=== PATIENT | female | born 1965 | race Caucasian/White ===

== ENCOUNTER 2017-12-22 19:05 | Inpatient (IN) | payer SELFPAY ==
[~2017-12-22] VITALS: Ht 157.5 cm; Wt 68.9 kg
[~2017-12-22 19:05] MED LIST: ALPR-138 PO; HYDR-3580 PO
[2017-12-22 19:13] VITALS: BP 168/95; PULSE 87; RESP 18; TEMP 98.5; O2SAT 98
--- NOTE | 2017-12-22 19:21 | PD ---
HPI Chief Complaint: Numbness/Tingling Time Seen by Provider: 19:13 Travel History International Travel<30 days: No Contact w/Intl Traveler<30days: No Traveled to known affect area: No History of Present Illness HPI The patient is a 51 year old female who presents to the [facility] emergency department with a history of developing left-sided weakness in her face, arm, leg this morning at 8:30 AM. She reports that she also has associated numbness in the left side of her face, arm, and left leg. She reports that throughout the day her weakness in the left leg has improved. However she continues to have a prominent sensation of left-sided facial numbness and left arm numbness. She reports that it is in a glove and stocking distribution. She reports having a mild headache, however she did not require any medication for it. She reports that the headache is in the left side of her head. She denies any prior history of hypertension, hyperlipidemia, or prior stroke. On review of systems otherwise, the patient denies having any known recent fevers, cough or congestion, neck pain, chest pain, shortness of breath, abdominal pain, vomiting, urinary symptoms, dizziness, or vision loss. Review of systems, the patient reports having diarrhea that began at lunchtime today. She reports that she has had 6 stools since onset. She reports that the stool is dark green in color. She denies having any blood or mucus in her stool. LMP: June 2017, she is perimenopausal. [facility] Past Medical History Narrative Medical The patient's past medical history is reportedly none. The patient does have a prior history of smoking and quit 8 months ago, however she did have a few cigarettes this past weekend. Arthritis: No Anxiety: No Depression: No Cancer: No Cardiovascular Problems: No Chemotherapy: No Cerebrovascular Accident: No Diabetes: No Diminished Hearing: No Genitourinary: No Immune Disorder: No Musculoskeletal: No Neurologic: No Psychiatric: No Reproductive: No Respiratory: No Migraines: No Radiation Therapy: No Sickle Cell Disease: No Thyroid Disease: No ?: Unknown Past Surgical History Narrative Surgical The patient's past surgical history is significant for , appendectomy Abdominal Surgery: No AICD: No Arteriovenous Shunt: No Cardiac Surgery: No Section: Yes Ear Surgery: No Endocrine Surgery: No Eye Surgery: No Genitourinary Surgery: No Gynecologic Surgery: Yes (c section) Insulin Pump: No Joint Replacement: No Oral Surgery: No (root cannot) Pacemaker: No Thoracic Surgery: No Social History Alcohol Use: No Tobacco Use: No (Quit smoking 8 months ago) Substance Use: No Allergies-Medications (Allergen,Severity, Reaction): Coded Allergies: penicillin G (Unverified Allergy, Intermediate, Shortness of Breath, ) Reported Meds & Prescriptions Reported Meds & Active Scripts Active No Active Prescriptions or Reported Medications Narrative Medication She denies being on any medications currently Review of Systems Except as stated in HPI: all other systems reviewed are Neg General / Constitutional: No: Fever Eyes: No: Visual changes HENT: Positive: Headaches, No: Congestion Cardiovascular: No: Chest Pain or Discomfort, Dyspnea on exertion Respiratory: No: Cough, Shortness of Breath Gastrointestinal: Positive: Diarrhea, No: Nausea, Vomiting, Abdominal Pain Genitourinary: No: Dysuria Musculoskeletal: No: Pain Skin: No Rash Neurologic: No: Weakness Psychiatric: No: Depression Endocrine: No: Polydipsia Hematologic/Lymphatic: No: Easy Bruising Physical Exam Narrative General: The patient is a well-developed well-nourished female in no acute distress. Head and Neck exam: Head is normocephalic, with notable facial asymmetry, mild facial droop noted on the right side. Eyes: EOMI, pupils are equal round and reactive to light. Nose: Midline septum with pink mucous membranes Mouth: Dentition unremarkable. Moist mucus membranes. Posterior oropharynx is not erythematous. No tonsillar hypertrophy. Uvula midline. Airway patent. Neck: No palpable lymphadenopathy. No nuchal rigidity. No thyromegaly. Cardiovascular: Regular rate and rhythm without murmurs, gallops, or rubs. No pulse deficit to the extremities on simultaneous auscultation and palpation of her radial artery Lungs: Clear to auscultation bilaterally. No wheezes, rhonchi, or rales. Abdomen: Soft, without tenderness to palpation in all 4 quadrants of the abdomen. No guarding, rebound, or rigidity. Normal bowel sounds are audible. No tenderness on palpation of McBurney's point. Negative Canseco sign. Extremities: No clubbing, cyanosis, or edema. 2+ pulses in all 4 extremities. No calf tenderness on palpation. Back: No costovertebral angle tenderness to palpation. Neurologic Exam: The patient has decreased sensation on the left side of her face. The patient has a mild facial droop on the right side of her face. The patient has numbness and tingling to the left upper extremity. The patient has 4/5 strength in the left upper and left lower extremity on examination. The patient has 5/5 strength in the right upper and right lower extremity. The patient has no evidence of aphasia and is able to name various objects around the room and communicate clearly. No visual field deficits. Skin Exam: No rash noted. Intact skin that is warm and dry. Data Data Last Documented VS Vital Signs Date Time Temp Pulse Resp B/P (MAP) Pulse Ox O2 Delivery O2 Flow Rate FiO2 12/22/17 20:25 85 18 127/84 (98) 97 Room Air 12/22/17 19:13 98.5 Orders Orders Electrocardiogram (12/22/17 19:17) B-Type Natriuretic Peptide (12/22/17 19:17) Ckmb (Isoenzyme) Profile (12/22/17 19:17) Complete Blood Count With Diff (12/22/17 19:17) Comprehensive Metabolic Panel (12/22/17 19:17) Magnesium (Mg) (12/22/17 19:17) Prothrombin Time / Inr (Pt) (12/22/17 19:17) Act Partial Throm Time (Ptt) (12/22/17 19:17) Troponin I (12/22/17 19:17) Lipase (12/22/17 19:17) Ecg Monitoring (12/22/17 19:17) Bilateral Bp Monitoring (12/22/17 19:17) Iv Access Insert/Monitor (12/22/17 19:17) Oximetry (12/22/17 19:17) Oxygen Administration (12/22/17 19:17) Aspirin Chew (Aspirin Chew) (12/22/17 19:30) Sodium Chloride 0.9% Flush (Ns Flush) (12/22/17 19:30) Nitroglycerin Sl (Nitrostat Sl) (12/22/17 19:30) Chest, Pa & Lat (12/22/17 19:17) Ed Urine Pregnancytest Poc (12/22/17 19:17) Fibrinogen (12/22/17 19:31) Ct Brain W/O Iv Contrast(Rout) (12/22/17 ) Cta Brain W Iv Contrast W 3d (12/22/17 19:31) Cta Neck W Iv Contrast W 3d (12/22/17 19:31) Consult Neurology (12/22/17 ) Sodium Chlor 0.9% 1000 Ml Inj (Ns 1000 M (12/22/17 19:31) (Hub Use Only)Inp Phy Cons/Ref (12/22/17 ) Urinalysis - C+S If Indicated (12/22/17 20:47) CKMB (12/22/17 19:20) CKMB% (12/22/17 19:20) Aspirin (Aspirin) (12/22/17 21:30) Iohexol 350 Inj (Omnipaque 350 Inj) (12/22/17 21:29) Admit Order (Ed Use Only) (12/22/17 21:41) Labs Laboratory Tests Test 12/22/17 19:20 12/22/17 20:30 White Blood Count 11.0 TH/MM3 Red Blood Count 4.71 MIL/MM3 Hemoglobin 15.3 GM/DL Hematocrit 43.2 % Mean Corpuscular Volume 91.7 FL Mean Corpuscular Hemoglobin 32.4 PG Mean Corpuscular Hemoglobin Concent 35.3 % Red Cell Distribution Width 13.6 % Platelet Count 310 TH/MM3 Mean Platelet Volume 9.4 FL Neutrophils (%) (Auto) 49.1 % Lymphocytes (%) (Auto) 40.1 % Monocytes (%) (Auto) 7.4 % Eosinophils (%) (Auto) 2.4 % Basophils (%) (Auto) 1.0 % Neutrophils # (Auto) 5.4 TH/MM3 Lymphocytes # (Auto) 4.4 TH/MM3 Monocytes # (Auto) 0.8 TH/MM3 Eosinophils # (Auto) 0.3 TH/MM3 Basophils # (Auto) 0.1 TH/MM3 CBC Comment DIFF FINAL Differential Comment Prothrombin Time 9.8 SEC Prothromb Time International Ratio 1.0 RATIO Activated Partial Thromboplast Time 27.0 SEC Fibrinogen 261 mg/dL Blood Urea Nitrogen 8 MG/DL Creatinine 0.92 MG/DL Random Glucose 124 MG/DL Total Protein 7.4 GM/DL Albumin 4.0 GM/DL Calcium Level 8.7 MG/DL Magnesium Level 2.1 MG/DL Alkaline Phosphatase 124 U/L Aspartate Amino Transf (AST/SGOT) 30 U/L Alanine Aminotransferase (ALT/SGPT) 64 U/L Total Bilirubin 0.3 MG/DL Sodium Level 140 MEQ/L Potassium Level 3.8 MEQ/L Chloride Level 110 MEQ/L Carbon Dioxide Level 23.8 MEQ/L Anion Gap 6 MEQ/L Estimat Glomerular Filtration Rate 65 ML/MIN Total Creatine Kinase 105 U/L Creatine Kinase MB 1.8 NG/ML Troponin I LESS THAN 0.02 NG/ML B-Type Natriuretic Peptide 18 PG/ML Lipase 273 U/L Urine Color LIGHT-YELLOW Urine Turbidity CLEAR Urine pH 7.0 Urine Specific Brumley 1.005 Urine Protein NEG mg/dL Urine Glucose (UA) NEG mg/dL Urine Ketones NEG mg/dL Urine Occult Blood NEG Urine Nitrite NEG Urine Bilirubin NEG Urine Urobilinogen LESS THAN 2.0 MG/DL Urine Leukocyte Esterase NEG Urine WBC LESS THAN 1 /hpf Urine Squamous Epithelial Cells 2 /hpf Urine Bacteria OCC /hpf Microscopic Urinalysis Comment CULT NOT INDICATED MDM Medical Decision Making Medical Screen Exam Complete: Yes Emergency Medical Condition: Yes Medical Record Reviewed: Yes Interpretation(s) Last Impressions Neck CTA 12/22/171930 Signed Impressions: Service Date/Time: Friday, December 22, 2017 21:06 - CONCLUSION: Normal examination for a patient of this age. Vlad Moreira MD Head CTA 12/22/171930 Signed Impressions: Service Date/Time: Friday, December 22, 2017 21:06 - CONCLUSION: Normal examination for a patient of this age. Vlad Moreira MD Chest X-Ray [id number]/22/[id number] Signed Impressions: Service Date/Time: Friday, December 22, 2017 19:41 - CONCLUSION: No acute disease. Vlad Moreira MD Head CT 12/22/17 0000 Signed Impressions: Service Date/Time: Friday, December 22, 2017 21:04 - CONCLUSION: Normal examination for a patient of this age. Vlad Moreira MD Differential Diagnosis Ischemic stroke, versus hemorrhagic stroke, versus intracranial mass, versus hypoglycemia Narrative Course During the course of the patient's emergency department visit, the patient's history, examination, and differential diagnosis were reviewed with the patient. The patient was placed on a cardiac nurse specialist with oximetry and frequent blood pressure monitoring. The patient had IV access obtained and blood work sent for analysis. The patient is out of the timeframe for meeting criteria for stroke alert. The patient's symptoms began at approximately 8:30 AM, over 11 hours ago. A call was placed out to the neurologist on-call regarding this patient's case. An NIH score was calculated at 1942 to be 6. He recommended that the patient undergo CT scan of the brain without contrast, followed by CTA of the head and neck. He recommended that if the noncontrast CT is negative for bleed, that the patient be started on aspirin 325 mg daily. He recommended admission to the hospitalist service and continuation of stroke workup including MRI, 2D echo. The patient had an EKG done on arrival that shows a sinus rhythm heart rate of 91, QRS duration is 87 ms, QTC [address] segment elevation is noted. T waves appear to be inverted in lead III, V1. The patient was initially provided normal saline at 70 mL/h. Blood sugar was done and was noted to be 129. The patient's head of the bed was placed flat. The patient's laboratory studies were reviewed and remarkable for a CBC that is within normal limits, CMP is remarkable for chloride 110, glucose 124, ALT 64, alk phos 124, cardiac enzymes within normal limits, BNP 18, lipase 273, PT PTT within normal limits, fibrinogen is 261, urinalysis is unremarkable Radiology studies were reviewed and remarkable for a chest x-ray that shows no acute cardiopulmonary disease, CT scan of the head showed no acute abnormality, therefore aspirin 325 mg p.o. was started 1. CTA of the head and neck were read as negative by the reading radiologist. While the patient was being observed in the emergency department, the patient reported after being laid flat in the bed she began to have chest pain in the left side of her chest. Cardiac enzymes and EKG showed no acute abnormality. The patient had already been given aspirin. The patient was given morphine for pain, Zofran for nausea. She denies having any sensation of acid reflux or indigestion associated with this. The patient's results were discussed with the patient, including the plan of care. I explained that further testing and/ or monitoring is indicated based on the patient's history, examination, and/ or laboratory findings. Therefore, I recommended admission for additional evaluation. The patient expressed understanding and was agreeable with this plan. The patient was admitted to the hospital in guarded condition and sent to a bed under the care of the [facility] hospitalist service. Physician Communication Physician Communication The patient's case including history, pertinent physical examination findings, and laboratory studies were discussed with Dr. Laureano at 7:37PM and Dr. Edwards the hospitalist on-call. It was agreed that the patient would be admitted to the [facility] Hospitalist service. Diagnosis Primary Impression: Ischemic stroke Additional Impression: Chest pain, rule out acute myocardial infarction Admitting Information Admitting Physician Requests: Admit Scripts No Active Prescriptions or Reported Aileen Mays MD Dec 22, 2017 19:21
[2017-12-22] MEDS ORDERED: ASPIRIN 81 MG CHEW TAB PO ONE (19:30)
[2017-12-22] MEDS ORDERED: SODIUM CHLORIDE 0.9% FLUSH 10 ML FLUSH IVF PRN (19:30)
[2017-12-22] MEDS ORDERED: NITROGLYCERIN 0.4 MG SL 25 TABS/BTL SL ONE (19:30)
[2017-12-22] MEDS ORDERED: SODIUM CHLOR 0.9% 1000 ML INJ 1,000 ML IV ONE (19:31)
[2017-12-22 19:35] VITALS: BP 155/88; PULSE 82; RESP 18; O2SAT 98
--- NOTE | 2017-12-22 20:15 | RADRPT ---
EXAM DATE/TIME: 12/22/2017 19:41 [facility] COMPARISON: No previous studies available for comparison. INDICATIONS : Chest pain MEDICAL HISTORY : None. SURGICAL HISTORY : None. ENCOUNTER: Initial ACUITY: 1 day PAIN SCORE: 2/10 LOCATION: chest FINDINGS: PA and lateral views of the chest demonstrate the lungs to be symmetrically aerated without evidence of mass, infiltrate or effusion. The cardiomediastinal contours are unremarkable. Osseous structure s are intact. CONCLUSION: No acute disease. Vlad Moreira MD on December 22, 2017 at 20:11 Board Certified Radiologist. This report was verified electronically.
[2017-12-22 20:23] LABS: AUTOMATED NEUTROPHIL # 5.4 TH/MM3 (1.8-7.7); BASOPHIL # 0.1 TH/MM3 (0-0.2); EOSINOPHIL # 0.3 TH/MM3 (0-0.4); EOSINOPHIL % 2.4 % (0.0-4.0); HEMATOCRIT 43.2 % (35.0-46.0); HEMOGLOBIN 15.3 GM/DL (11.6-15.3); LYMPH % 40.1 % (9.0-44.0); LYMPHOCYTE # 4.4 TH/MM3 (1.0-4.8); MEAN CELL VOLUME 91.7 FL (80.0-100.0); MEAN CORPUSCULAR HEMOGLOBIN 32.4 PG (27.0-34.0); MEAN CORPUSCULAR HGB CONC 35.3 % (32.0-36.0); MEAN PLATELET VOLUME 9.4 FL (7.0-11.0); MONO % 7.4 % (0.0-8.0); MONOCYTE # 0.8 TH/MM3 (0-0.9); NEUT % 49.1 % (16.0-70.0); PLATELET COUNT 310 TH/MM3 (150-450); RED BLOOD COUNT 4.71 MIL/MM3 (4.00-5.30); RED CELL DISTRIBUTION WIDTH 13.6 % (11.6-17.2)
[2017-12-22 20:25] VITALS: BP 127/84; PULSE 85; RESP 18; O2SAT 97
[2017-12-22 20:31] LABS: PROTHROMBIN TIME - PATIENT 9.8 SEC (9.8-11.6)
[2017-12-22 20:49] LABS: ALKALINE PHOSPHATASE 124 U/L (45-117); ALT (GPT) 64 U/L (10-53); TOTAL BILIRUBIN ADULT 0.3 MG/DL (0.2-1.0); TOTAL PROTEIN 7.4 GM/DL (6.4-8.2); TROPONIN I LESS THAN 0.02 NG/ML (0.02-0.05)
[2017-12-22 20:56] LABS: AST (GOT) 30 U/L (15-37); BICARBONATE 23.8 MEQ/L (21.0-32.0); BLOOD UREA NITROGEN 8 MG/DL (7-18); CALCIUM 8.7 MG/DL (8.5-10.1); CHLORIDE 110 MEQ/L (98-107); CREATININE 0.92 MG/DL (0.50-1.00); GLOMERULAR FILTRATION RATE 65 ML/MIN (>89); GLUCOSE,RANDOM 124 MG/DL (74-106); MAGNESIUM 2.1 MG/DL (1.5-2.5); SODIUM (NA) 140 MEQ/L (136-145)
--- NOTE | 2017-12-22 21:13 | RADRPT ---
EXAM DATE/TIME: 12/22/2017 21:04 [facility] COMPARISON: No previous studies available for comparison. INDICATIONS : Facial droop. RADIATION DOSE: 56.35 CTDIvol (mGy) MEDICAL HISTORY : None SURGICAL HISTORY : Appendectomy. ENCOUNTER: Initial ACUITY: 1 day PAIN SCALE: 0/10 LOCATION: cranial TECHNIQUE: Multiple contiguous axial images were obtained of the head. Using automated exposure control and adj ustment of the mA and/or kV according to patient size, radiation dose was kept as low as reasonably a chievable to obtain optimal diagnostic quality images. DICOM format image data is available electro nically for review and comparison. FINDINGS: CEREBRUM: The ventricles are normal for age. No evidence of midline shift, mass lesion, hemorrhage or acute in farction. No extra-axial fluid collections are seen. POSTERIOR FOSSA: The cerebellum and brainstem are intact. The 4th ventricle is midline. The cerebellopontine angle i s unremarkable. EXTRACRANIAL: The visualized portion of the orbits is intact. SKULL: The calvaria is intact. No evidence of skull fracture. CONCLUSION: Normal examination for a patient of this age. Vlad Moreira MD on December 22, 2017 at 21:09 Board Certified Radiologist. This report was verified electronically.
[2017-12-22] MEDS ORDERED: IOHEXOL 350 MG/ML 10 ML VIAL (for RAD DIAG) IVCONTRAST ONE (21:29)
[2017-12-22] MEDS ORDERED: ASPIRIN 325 MG TAB PO ONE (21:30)
--- NOTE | 2017-12-22 21:33 | RADRPT ---
EXAM DATE/TIME: 12/22/2017 21:06 [facility] COMPARISON: No previous studies available for comparison. INDICATIONS : Facial droop. IV CONTRAST: 75 cc Omnipaque 350 (iohexol) IV ; Cumulative dose for multiple exams. RADIATION DOSE: 10.37 CTDIvol (mGy) ; Combined studies MEDICAL HISTORY : None SURGICAL HISTORY : Appendectomy. ENCOUNTER: Initial ACUITY: 1 day PAIN SCALE: 0/10 LOCATION: Bilateral neck Elevated flow velocities and ICA/CCA ratios have been found to correlate with increased degrees of vessel stenosis, calculated as percentage of diameter relative to a normal segment of distal ICA/CCA. TECHNIQUE: Volumetric scanning was performed using a multirow detector CT scanner. The data was post processed with a variety of visualization algorithms including full-volume maximum intensity projection, multip lanar sliding thin-slab reformation, curved-planar reformation, and surface-rendering techniques. Us ing automated exposure control and adjustment of the mA and/or kV according to patient size, radiatio n dose was kept as low as reasonably achievable to obtain optimal diagnostic quality images. DICOM f ormat image data is available electronically for review and comparison. FINDINGS: AORTIC ARCH: There is a three-vessel origin of the great vessels from the aorta. No evidence of ostial narrowing. RIGHT CAROTID: The common carotid artery is intact. The carotid bulb has a normal configuration without ulceration o r narrowing. The internal carotid artery lumen is smooth without stenosis. The external carotid emil ry is intact. LEFT CAROTID: The common carotid artery is intact. The carotid bulb has a normal configuration without ulceration or narrowing. The internal carotid artery lumen is smooth without stenosis. The external carotid ar annie is intact. VERTEBRALS: The vertebral arteries have a symmetric diameter. No stenotic lesions are seen. CONCLUSION: Normal examination for a patient of this age. Vlad Moreira MD on December 22, 2017 at 21:27 Board Certified Radiologist. This report was verified electronically.
[2017-12-22 21:34] LABS: BACTERIA, URINE OCC /hpf; BILIRUBIN, URINE NEG (NEG); BLOOD, URINE NEG (NEG); GLUCOSE,URINE NEG (NEG); KETONE, URINE NEG (NEG); NITRITE,URINE NEG (NEG); SQUAMOUS EPITHELIAL CELL URINE 2 /hpf (0-5); URINE COLOR LIGHT-YELLOW (YELLW/STRAW); URINE LEUKOCYTE ESTERASE NEG (NEG)
--- NOTE | 2017-12-22 21:51 | RADRPT ---
EXAM DATE/TIME: 12/22/2017 21:06 [facility] COMPARISON: No previous studies available for comparison. INDICATIONS : Facial droop. IV CONTRAST: 75 cc Omnipaque 350 (iohexol) IV ; Cumulative dose for multiple exams. RADIATION DOSE: 10.37 CTDIvol (mGy) ; Combined studies MEDICAL HISTORY : None SURGICAL HISTORY : Appendectomy. ENCOUNTER: Initial ACUITY: 1 day PAIN SCALE: 0/10 LOCATION: cranial TECHNIQUE: Volumetric scanning was performed using a multi-row detector CT scanner. The data was post processed with a variety of visualization algorithms including full volume maximum intensity projection, multi -planar sliding thin slab reformation, curved planar reformation, and surface rendering techniques. Using automated exposure control and adjustment of the mA and/or kV according to patient size, radiat ion dose was kept as low as reasonably achievable to obtain optimal diagnostic quality images. DICO M format image data is available electronically for review and comparison. FINDINGS: There is excellent visualization of the major intracranial arteries out to the second-order branch ve ssels. There is no evidence for aneurysm, vessel truncation or stenosis, and no evidence for vascula r malformation. CONCLUSION: Normal examination for a patient of this age. Vlad Moreira MD on December 22, 2017 at 21:46 Board Certified Radiologist. This report was verified electronically.
[2017-12-22 22:20] VITALS: BP 135/84; PULSE 78; RESP 18; O2SAT 98
[2017-12-22 23:00] VITALS: BP 129/77; PULSE 79; RESP 15; O2SAT 97
[2017-12-22] MEDS ORDERED: ONDANSETRON HCL 4 MG/2 ML VIAL IV PUSH ONE (23:00)
[2017-12-22] MEDS ORDERED: MORPHINE SULFATE 2 MG/ML SYRINGE IV PUSH ONE (23:00)
--- NOTE | 2017-12-22 23:31 | HHI.HP ---
[facility] Arthur Callaway DO Admission Diagnosis TIA versus CVA Diagnoses: Travel History International Travel<30 Days: No Contact w/Intl Traveler <30 Da: No Traveled to Known Affected Are: No History of Present Illness 51-year-old female with no significant past medical history presents to the emergency department for the evaluation of strokelike symptoms. The patient reports that approximately 8:30 this morning she had numbness and tingling down her left arm and left leg. She reports that these symptoms persisted for approximately an hour. The patient reports she went to lie down and felt better. Around 11 AM the symptoms returned this time for approximately 10 minutes. She also noted that her "face felt funny." She states she had a left sided numbness with a facial droop. She also states that her right eye was more closed than normal. The patient's symptoms resolved after 10 minutes and returned again at 6 PM around dinnertime. At time she had a left-sided facial numbness with drooling and right eyelid drooping. She reports persistent left sided upper and lower extremity numbness/tingling along with right-sided facial droop. No dysarthria or word finding difficulties. She also endorses chest pain and a headache that has been going on for approximately 3 hours. She states the chest pain is substernal and radiates to her bilateral lower breasts. She denies any diaphoresis or shortness of breath. No pain. No nausea/vomiting/diarrhea. Review of Systems Except as stated in HPI: all other systems reviewed are Neg Past Family Social History Past Medical History None Past Surgical History Appendectomy Reported Medications Reported Meds & Active Scripts Active No Active Prescriptions or Reported Medications Allergies: Coded Allergies: penicillin G (Unverified Allergy, Intermediate, Shortness of Breath, ) Family History Negative for CAD/DM Social History Quit smoking approximately 8 months ago. Occasional alcohol. Denies illicit drugs. Physical Exam Vital Signs Vital Signs Date Time Temp Pulse Resp B/P (MAP) Pulse Ox O2 Delivery O2 Flow Rate FiO2 12/22/17 22:22 98 Room Air 12/22/17 22:20 78 18 135/84 (101) 98 Room Air 12/22/17 20:25 85 18 127/84 (98) 97 Room Air 12/22/17 19:35 82 18 155/88 (110) 98 Room Air 12/22/17 19:13 98.5 87 18 168/95 (119) 98 Physical Exam GENERAL: female lying in bed SKIN: No rashes, ecchymoses or lesions. Cool and dry. HEAD: Atraumatic. Normocephalic. No temporal or scalp tenderness. EYES: Pupils equal round and reactive. Extraocular motions intact. No scleral icterus. No injection or drainage. ENT: Nose without bleeding, purulent drainage or septal hematoma. Throat without erythema, tonsillar hypertrophy or exudate. Uvula midline. Airway patent. NECK: Trachea midline. No JVD or lymphadenopathy. Supple, nontender, no meningeal signs. CARDIOVASCULAR: Regular rate and rhythm without murmurs, gallops, or rubs. RESPIRATORY: Clear to auscultation. Breath sounds equal bilaterally. No wheezes , rales, or rhonchi. GASTROINTESTINAL: Abdomen soft, non-tender, nondistended. No hepato-splenomegaly , or palpable masses. No guarding. MUSCULOSKELETAL: Extremities without clubbing, cyanosis, or edema. No joint tenderness, effusion, or edema noted. No calf tenderness. NEUROLOGICAL: Awake and alert. Decreased sensation on the left side of the face. Mild facial droop on the right. Numbness and tingling to left upper extremity. 4/5 strength in the left upper and lower extremities. 5/5 strength throughout the remainder of the exam. Laboratory Laboratory Tests Test 12/22/17 19:20 12/22/17 20:30 White Blood Count 11.0 Red Blood Count 4.71 Hemoglobin 15.3 Hematocrit 43.2 Mean Corpuscular Volume 91.7 Mean Corpuscular Hemoglobin 32.4 Mean Corpuscular Hemoglobin Concent 35.3 Red Cell Distribution Width 13.6 Platelet Count 310 Mean Platelet Volume 9.4 Neutrophils (%) (Auto) 49.1 Lymphocytes (%) (Auto) 40.1 Monocytes (%) (Auto) 7.4 Eosinophils (%) (Auto) 2.4 Basophils (%) (Auto) 1.0 Neutrophils # (Auto) 5.4 Lymphocytes # (Auto) 4.4 Monocytes # (Auto) 0.8 Eosinophils # (Auto) 0.3 Basophils # (Auto) 0.1 CBC Comment DIFF FINAL Differential Comment Prothrombin Time 9.8 Prothromb Time International Ratio 1.0 Activated Partial Thromboplast Time 27.0 Fibrinogen 261 Blood Urea Nitrogen 8 Creatinine 0.92 Random Glucose 124 Total Protein 7.4 Albumin 4.0 Calcium Level 8.7 Magnesium Level 2.1 Alkaline Phosphatase 124 Aspartate Amino Transf (AST/SGOT) 30 Alanine Aminotransferase (ALT/SGPT) 64 Total Bilirubin 0.3 Sodium Level 140 Potassium Level 3.8 Chloride Level 110 Carbon Dioxide Level 23.8 Anion Gap 6 Estimat Glomerular Filtration Rate 65 Total Creatine Kinase 105 Creatine Kinase MB 1.8 Troponin I LESS THAN 0.02 B-Type Natriuretic Peptide 18 Lipase 273 Urine Color LIGHT-YELLOW Urine Turbidity CLEAR Urine pH 7.0 Urine Specific [place] 1.005 Urine Protein NEG Urine Glucose (UA) NEG Urine Ketones NEG Urine Occult Blood NEG Urine Nitrite NEG Urine Bilirubin NEG Urine Urobilinogen LESS THAN 2.0 Urine Leukocyte Esterase NEG Urine WBC LESS THAN 1 Urine Squamous Epithelial Cells 2 Urine Bacteria OCC Microscopic Urinalysis Comment CULT NOT INDICATED Result Diagram: 12/22/17191912/22/171919 Caprini VTE Risk Assessment Caprini VTE Risk Assessment: No/Low Risk (score <= 1) Caprini Risk Assessment Model Point Value = 1 Point Value = 2 Point Value = 3 Point Value = 5 Age 41-60 Minor surgery BMI > 25 kg/m2 Swollen legs Varicose veins or History of unexplained or recurrent spontaneous Oral contraceptives or hormone replacement Sepsis (< 1 month) Serious lung disease, including pneumonia (< 1 month) Abnormal pulmonary function Acute myocardial infarction Congestive heart failure (< 1 month) History of inflammatory bowel disease Medical patient at bed rest Age 61-74 Arthroscopic surgery Major open surgery (> 45 min) Laparoscopic surgery (> 45 min) Malignancy Confined to bed (> 72 hours) Immobilizing plaster cast Central venous access Age >= 75 History of VTE Family history of VTE Factor V Leiden Prothrombin [id number] Lupus anticoagulant Anticardiolipin antibodies Elevated serum homocysteine Heparin-induced thrombocytopenia Other congenital or acquired thrombophilia Stroke (< 1 month) Elective arthroplasty Hip, pelvis, or leg fracture Acute spinal cord injury (< 1 month) Prophylaxis Regimen Total Risk Factor Score Risk Level Prophylaxis Regimen 0-1 Low Early ambulation 2 Moderate Order ONE of the following: *Sequential Compression Device (SCD) *Heparin 5000 units SQ BID 3-4 Higher Order ONE of the following medications: *Heparin 5000 units SQ TID *Enoxaparin/Lovenox 40 mg SQ daily (WT < 150 kg, CrCl > 30 mL/min) *Enoxaparin/Lovenox 30 mg SQ daily (WT < 150 kg, CrCl > 10-29 mL/min) *Enoxaparin/Lovenox 30 mg SQ BID (WT < 150 kg, CrCl > 30 mL/min) AND/OR *Sequential Compression Device (SCD) 5 or more Highest Order ONE of the following medications: *Heparin 5000 units SQ TID (Preferred with Epidurals) *Enoxaparin/Lovenox 40 mg SQ daily (WT < 150 kg, CrCl > 30 mL/min) *Enoxaparin/Lovenox 30 mg SQ daily (WT < 150 kg, CrCl > 10-29 mL/min) *Enoxaparin/Lovenox 30 mg SQ BID (WT < 150 kg, CrCl > 30 mL/min) AND *Sequential Compression Device (SCD) Assessment and Plan Assessment and Plan Assessment/plan: 1. CVA/TIA Head CT negative for acute process Head CTA, neck CTA within normal limits Brain MRI/MRA pending, carotid ultrasound pending Neurology consulted, appreciate recommendations Aspirin Patient not a candidate for TPA given window of symptoms 2. Chest pain Unclear etiology Initial troponin negative EKG showed normal sinus rhythm without ST segment elevations or depressions, personally reviewed ACS rule out pending; serial troponins/EKGs FEN NPO NS at 70 cc/hr Electrolytes: Monitor and replete when necessary Physician Certification 2 Midnight Certification Type: Admission for Inpatient Services Order for Inpatient Services The services are ordered in accordance with Medicare regulations or non- Medicare payer requirements, as applicable. In the case of services not specified as inpatient-only, they are appropriately provided as inpatient services in accordance with the 2-midnight benchmark. Estimated LOS (days): 2 2 days is the estimated time the patient will need to remain in the hospital, assuming treatment plan goals are met and no additional complications. Post-Hospital Plan: Not yet determined Alice Edwards MD Dec 22, 2017 23:31
[2017-12-23] VITALS (7 sets, daily range): BP systolic 101–144; BP diastolic 68–93; PULSE 71–86; RESP 16–20; TEMP 96–97.1; O2SAT 94–98
[2017-12-23 02:38] LABS: TROPONIN I LESS THAN 0.02 NG/ML (0.02-0.05)
[2017-12-23] MEDS: MORPHINE SULFATE 2 MG/ML SYRINGE IV PUSH PRN ×2 (03:48→21:33)
--- NOTE | 2017-12-23 04:46 | EKG ---
Date Performed: 12/22/2017 Time Performed: 19:26:36 PTAGE: 51 years EKG: Sinus rhythm POSSIBLE LEFT ATRIAL ENLARGEMENT BORDERLINE ECG NO PREVIOUS TRACING DOCTOR: Ralph Powell Interpretating Date/Time 12/23/2017 04:46:22
[2017-12-23 07:00] LABS: TROPONIN I LESS THAN 0.02 NG/ML (0.02-0.05)
--- NOTE | 2017-12-23 08:01 | EKG ---
Date Performed: 12/23/2017 Time Performed: 01:52:29 PTAGE: 51 years EKG: Sinus rhythm LOW QRS VOLTAGE IN PRECORDIAL LEADS BORDERLINE ECG No significant change from prior electrocardiogra m. PREVIOUS TRACING : 12/22/2017 19.26 DOCTOR: Ralph Powell Interpretating Date/Time 12/23/2017 07:59:42
--- NOTE | 2017-12-23 08:25 | PD.CONS ---
History of Present Illness Service Neurology Consult Requested By medical Reason for Consult stroke Primary Care Physician Arthur Callaway, DO History of Present Illness 51-year-old female with no significant past medical history admitted for left sided tingling, numbness that began yesterday am. no previous occurrence. off/ on yesterday. still feels some numbness in left face and left arm. thought her chewing was off yesterday. no current weakness. c/o of generalized headache. minimal photo/phonophobia. no hx of migraines. no fever, night sweats or chills. no hx of tia/stroke/sz/afib/lupus. not on blood thinners. states she feels better and wants to go home. 168/95 bp, glucose 124 ct brain. cta brain/carotids nml Review of Systems Except as stated in HPI: all other systems reviewed are Neg Past Family Social History Past Medical History None Past Surgical History Appendectomy Reported Medications Reported Meds & Active Scripts Active No Active Prescriptions or Reported Medications Allergies: Coded Allergies: penicillin G (Unverified Allergy, Intermediate, Shortness of Breath, ) Family History Negative for CAD/DM Social History Quit smoking approximately 8 months ago. Occasional alcohol. Denies illicit drugs. Review of Systems All other ROS: ROS reviewed as documented in chart Past Family Social History Allergies: Coded Allergies: penicillin G (Unverified Allergy, Intermediate, Shortness of Breath, ) Active Ordered Medications Current Medications Medications (Trade) Dose Ordered Sig/Tyler Route Start Time Stop Time Status Last Admin (Aspirin) 325 mg DAILY PO 12/23/17 09:00 (Morphine Inj) 2 mg Q3H PRN IV PUSH 12/22/17 23:30 12/23/17 03:48 Sodium Chloride 1,000 ml @ 70 mls/hr [id number] IV 12/22/17 23:30 Exam I&O / VS Vital Signs Date Time Temp Pulse Resp B/P (MAP) Pulse Ox O2 Delivery O2 Flow Rate FiO2 12/23/17 02:52 96.0 84 20 144/93 (110) 98 Room Air 12/23/17 02:12 79 20 110/73 (85) 96 12/22/17 23:00 79 15 129/77 (94) 97 Room Air 12/22/17 22:22 98 Room Air 12/22/17 22:20 78 18 135/84 (101) 98 Room Air 12/22/17 20:25 85 18 127/84 (98) 97 Room Air 12/22/17 19:35 82 18 155/88 (110) 98 Room Air 12/22/17 19:13 98.5 87 18 168/95 (119) 98 General: Alert and Oriented, No acute distress Eye: EOMI Respiratory: Non-labored respirations Cardiology: Normal rate Musculoskeletal: ROM Neurologic: Alert, Oriented, Normal motor, Normal DTR's Psychiatric: Cooperative, Appropriate mood & affect, Normal judgement Exam Comments ox 3, no aphasia, follows, eomi, ou 3-2mm, mild left reduced pin in v2,3, left arm and left lateral leg, no weakness, no drift, no dystaxia. msr sym, no clonus , planter flexor Review/Management Diagnosis/Plan: (1) Acute focal neurological deficit ICD Codes: R29.818 - Other symptoms and signs involving the nervous system Status: Acute Plan: possible rt thalamic/pure sensory infarct vs complicated migraine recs f/u mri brain aspirin qd f/u echo/lipids would suggest cardio eval for sarah/event monitor if mri brain positive- defer to medical if mri brain negative, d/c planning home pending echo/lipids scd's elevated lft's per medical Hilton Perez MD Dec 23, 2017 08:25
[2017-12-23] MEDS: ASPIRIN 325 MG TAB PO SCH (09:00)
--- NOTE | 2017-12-23 10:25 | RADRPT ---
EXAM DATE/TIME: 12/23/2017 08:39 [facility] COMPARISON: No previous studies available for comparison. INDICATIONS : Left sided numbness and facial droop. MEDICAL HISTORY : None. SURGICAL HISTORY : Appendectomy. section. ENCOUNTER: Initial ACUITY: 2 day PAIN SCORE: 0/10 LOCATION: head Please note a normal MRA of the brain does not entirely exclude the possibility of a small aneurysm, nor the possibility of distal intracranial vessel disease. TECHNIQUE: 3D time of flight MRA was performed. Source images, multiplanar STS MIP, and 3D volume MIP reconstru ctions were reviewed. FINDINGS: Anterior circulation: Distal intracranial internal carotid arteries are patent with flow extending to the middle and anteri or cerebral arteries. There is no evidence for aneurysm, vessel truncation or stenosis, and no eviden ce for vascular malformation. Posterior circulation: Symmetric distal vertebral arteries with flow extending to basilar artery. There is no evidence for aneurysm, vessel truncation or stenosis, and no evidence for vascular malformation. CONCLUSION: 1. Unremarkable MRA examination of the [place]. Specifically, no significant stenosis or lar ge vessel occlusion. Jesse Mcqueen MD on December 23, 2017 at 9:49 Board Certified Radiologist. This report was verified electronically.
--- NOTE | 2017-12-23 10:26 | RADRPT ---
EXAM DATE/TIME: 12/23/2017 08:39 [facility] COMPARISON: No previous studies available for comparison. INDICATIONS : Left sided numbness and facial droop. MEDICAL HISTORY : None. SURGICAL HISTORY : Appendectomy. section. ENCOUNTER: Initial ACUITY: 2 day PAIN SCORE: 0/10 LOCATION: brain TECHNIQUE: Multiplanar, multisequence MRI of the brain was performed without contrast. FINDINGS: CEREBRUM: The ventricles are normal for age. No evidence of midline shift, mass lesion, hemorrhage or acute in farction. No extraaxial fluid collections are seen. The pituitary gland and suprasellar cistern are normal in configuration. WHITE MATTER: No significant signal abnormalities are seen in the white matter. POSTERIOR FOSSA: The cerebellum and brainstem are intact. The 4th ventricle is midline. The cerebellopontine angle is unremarkable. The cerebellar tonsils are normal in position. DIFFUSION IMAGING: No focal areas of restricted diffusion are seen. No evidence of acute infarction. EXTRACRANIAL: The visualized portions of the orbits and paranasal sinuses are unremarkable. CONCLUSION: 1. Unremarkable MRI examination of the brain. Specifically, no evidence for infarction, hemorrhage or mass. Jesse Mcqueen MD on December 23, 2017 at 10:22 Board Certified Radiologist. This report was verified electronically.
[2017-12-23 10:41] LABS: CHOLESTEROL 217 MG/DL (120-200)
[2017-12-23] MEDS ORDERED: ACETAMINOPHEN 500 MG CPLT PO PRN (10:45)
[2017-12-23 11:06] LABS: CHOLESTEROL/ HDL RATIO 7.94 RATIO; HDL CHOLESTEROL 27.3 MG/DL (40.0-60.0); LDL CHOLESTEROL 141 MG/DL (0-99); TRIGLYCERIDES 243 MG/DL (42-150)
[2017-12-23] MEDS: SODIUM CHLOR 0.9% 1000 ML INJ 1,000 ML IV SCH ×2 (13:48→18:01)
--- NOTE | 2017-12-23 14:57 | HHI.PR ---
Subjective Remarks Follow up CVA. Patient still having numbness and drooping of the left side of her face. Denies numbness, tingling, weakness of her extremities. She has had dull substernal chest pain, which lasted about 10 minutes last night. No pain currently. Objective Vitals Vital Signs Date Time Temp Pulse Resp B/P (MAP) Pulse Ox O2 Delivery O2 Flow Rate FiO2 12/23/17 12:00 96.8 72 16 128/81 (97) 96 12/23/17 08:00 96.4 79 16 101/68 (79) 95 12/23/17 02:52 96.0 84 20 144/93 (110) 98 Room Air 12/23/17 02:12 79 20 110/73 (85) 96 12/22/17 23:00 79 15 129/77 (94) 97 Room Air 12/22/17 22:22 98 Room Air 12/22/17 22:20 78 18 135/84 (101) 98 Room Air 12/22/17 20:25 85 18 127/84 (98) 97 Room Air 12/22/17 19:35 82 18 155/88 (110) 98 Room Air 12/22/17 19:13 98.5 87 18 168/95 (119) 98 Result Diagram: 12/22/17191912/22/171919 Imaging Last Impressions Head Magnetic Resonance Angiography 12/23/17 0000 Signed Impressions: Service Date/Time: Saturday, December 23, 2017 08:39 - CONCLUSION: 1. Unremarkable MRA examination of the [place]. Specifically, no significant stenosis or large vessel occlusion. Jesse Mcqueen MD Brain MRI 12/23/17 0000 Signed Impressions: Service Date/Time: Saturday, December 23, 2017 08:39 - CONCLUSION: 1. Unremarkable MRI examination of the brain. Specifically, no evidence for infarction, hemorrhage or mass. Jesse Mcqueen MD Neck CTA 12/22/171930 Signed Impressions: Service Date/Time: Friday, December 22, 2017 21:06 - CONCLUSION: Normal examination for a patient of this age. Vlad Moreira MD Head CTA 12/22/171930 Signed Impressions: Service Date/Time: Friday, December 22, 2017 21:06 - CONCLUSION: Normal examination for a patient of this age. Vlad Moreira MD Chest X-Ray 12/22/17 1917 Signed Impressions: Service Date/Time: Friday, December 22, 2017 19:41 - CONCLUSION: No acute disease. Vlad Moreira MD Head CT 12/22/17 0000 Signed Impressions: Service Date/Time: Friday, December 22, 2017 21:04 - CONCLUSION: Normal examination for a patient of this age. Vlad Moreira MD Objective Remarks General: No acute distress. Heart: Regular rate and rhythm. No murmur. Chest wall: No tenderness to palpation. Lungs: Clear to auscultation bilaterally. No wheezes, rales, or rhonchi. Breathing is nonlabored. Abdomen: Soft, nontender, nondistended. Extremities: No lower extremity edema. Psych: Alert and oriented. Procedures None Urinary Catheter: No Vascular Central Line Catheter: No A/P Assessment and Plan 1. CVA versus TIA: Head CT and MRI are negative. Patient still with symptoms including left facial droop and numbness. Appreciate neurology recommendations. Continue PT/OT/ST. Continue aspirin. 2. Chest pain: Uncertain etiology. No chest pain at the time of my evaluation. Serial cardiac enzymes are negative. 3. Hyperlipidemia: Start statin. 4. Elevated transaminases: Monitor labs. Will use caution with statins. 5. DVT prophylaxis: CHANI Lyon. Discharge Planning Possible discharge home next 1-2 days. Echocardiogram is pending. Marlon Valentino MD Dec 23, 2017 14:57
[2017-12-23 17:13] LABS: HEMOGLOBIN A1C 5.5 % (4.3-6.0)
[2017-12-23] MEDS ORDERED: ATORVASTATIN 10 MG TAB PO SCH (21:00)
[2017-12-24] VITALS (7 sets, daily range): BP systolic 111–128; BP diastolic 69–73; PULSE 71–89; RESP 16–19; TEMP 96.1–96.9; O2SAT 92–96
[2017-12-24] MEDS: SODIUM CHLOR 0.9% 1000 ML INJ 1,000 ML IV SCH ×2 (04:02→17:27)
[2017-12-24 07:22] LABS: ALBUMIN 3.3 GM/DL (3.4-5.0); ALKALINE PHOSPHATASE 88 U/L (45-117); ALT (GPT) 62 U/L (10-53); AST (GOT) 31 U/L (15-37); BICARBONATE 23.4 MEQ/L (21.0-32.0); BLOOD UREA NITROGEN 8 MG/DL (7-18); CALCIUM 8.5 MG/DL (8.5-10.1); CHLORIDE 110 MEQ/L (98-107); CREATININE 0.85 MG/DL (0.50-1.00); GLOMERULAR FILTRATION RATE 71 ML/MIN (>89); GLUCOSE,RANDOM 92 MG/DL (74-106); SODIUM (NA) 142 MEQ/L (136-145); TOTAL BILIRUBIN ADULT 0.7 MG/DL (0.2-1.0); TOTAL PROTEIN 6.7 GM/DL (6.4-8.2)
[2017-12-24] MEDS: ASPIRIN 325 MG TAB PO SCH (09:11)
[2017-12-24] MEDS ORDERED: ASA325 PO (15:31)
[2017-12-24] MEDS ORDERED: LIPI10TA PO (15:31)
--- NOTE | 2017-12-24 18:26 | ECHRPT ---
Indication: CVA/TIA CONCLUSIONS The left ventricular systolic function is low normal with an estimated ejection fraction in the rang e of 50- 55%. Wall thickness is measured at the upper limits of normal. Normal left ventricular size. Trace mitral valve regurgitation. Calcification of the right coronary cusp. Trace aortic valve regurgitation. Trivial pulmonary valve regurgitation. BP: 128 / 81 HR: 72 Rhythm: Sinus MEASUREMENTS (Male / Female) Normal Values Technical Quality:Fair 2D ECHO LV Diastolic Diameter PLAX 3.7 cm 4.2 - 5.9 / 3.9 - 5.3 cm LV Systolic Diameter PLAX 2.5 cm IVS Diastolic Thickness 1.0 cm 0.6 - 1.0 / 0.6 - 0.9 cm LVPW Diastolic Thickness 1.0 cm 0.6 - 1.0 / 0.6 - 0.9 cm LV Relative Wall Thickness 0.5 RV Internal Dim ED PLAX 3.4 cm LVOT Diameter 1.8 cm LA Systolic Diameter LX 3.6 cm 3.0 - 4.0 / 2.7 - 3.8 cm M-MODE Aortic Root Diameter MM 3.1 cm LA Systolic Diameter MM 3.4 cm LA Ao Ratio MM 1.1 AV Cusp Separation MM 1.8 cm DOPPLER AV Peak Velocity 142.0 cm/s AV Peak Gradient 8.1 mmHg LVOT Peak Velocity 124.0 cm/s LVOT Peak Gradient 6.2 mmHg AV Area Cont Eq pk 2.2 cm MV Area PHT 2.8 cm Mitral E Point Velocity 77.0 cm/s Mitral A Point Velocity 70.6 cm/s Mitral E to A Ratio 1.1 LV E' Lateral Velocity 8.5 cm/s Mitral E to LV E' Lateral Ratio 9.1 LV E' Septal Velocity 8.1 cm/s Mitral E to LV E' Septal Ratio 9.5 FINDINGS LEFT VENTRICLE The left ventricular systolic function is low normal with an estimated ejection fraction in the rang e of 50- 55%. Wall thickness is measured at the upper limits of normal. Normal left ventricular size. RIGHT VENTRICLE Normal right ventricular size and systolic function. LEFT ATRIUM The left atrial size is normal. RIGHT ATRIUM The right atrial size is normal. ATRIAL SEPTUM Normal atrial septal thickness without atrial level shunting by limited color doppler interrogation. AORTA The aortic root and proximal ascending aorta are normal in size on limited imaging. MITRAL VALVE Structurally normal mitral valve. Trace mitral valve regurgitation. AORTIC VALVE Trileaflet aortic valve. Calcification of the right coronary cusp. Trace aortic valve regurgitation. TRICUSPID VALVE Structurally normal tricuspid valve. No tricuspid valve stenosis or regurgitation. PULMONARY VALVE Trivial pulmonary valve regurgitation. VESSELS The inferior vena cava is normal in size. PERICARDIUM No pericardial effusion. Antonio Bojorquez MD, FACC, [facility] (Electronically Signed) Final Date:24 December 2017 18:26
--- NOTE | 2017-12-24 19:15 | HHI.PR ---
Subjective Remarks Says she is feeling well. Still with facial weakness unchanged. No extremity weakness. Very adamantly wants to go home. Objective Vital Signs Date Time Temp Pulse Resp B/P (MAP) Pulse Ox O2 Delivery O2 Flow Rate FiO2 12/24/17 17:16 80 12/24/17 16:00 96.1 89 17 120/71 (87) 95 12/24/17 13:13 83 12/24/17 12:00 96.4 83 19 111/72 (85) 96 12/24/17 08:00 74 12/24/17 08:00 96.2 74 18 117/72 (87) 94 12/24/17 04:00 96.5 71 16 118/69 (85) 92 12/24/17 04:00 71 12/24/17 00:00 73 12/24/17 00:00 96.9 80 16 128/73 (91) 95 12/23/17 21:41 81 12/23/17 21:38 18 12/23/17 20:00 96.0 71 16 131/90 (104) 94 I/O 12/23/17 12/23/17 12/23/17 12/24/17 12/24/17 12/24/17 06:59 14:59 22:59 06:59 14:59 22:59 Intake Total 308 ml 240 ml 1100 ml Balance 308 ml 240 ml 1100 ml Intake Oral 240 ml 240 ml 1100 ml IV Total 68 ml # Voids 2 4 8 # Bowel Movements 0 0 Result Diagram: 12/22/17 1920 12/24/17 0556 Objective Remarks GENERAL: Patient sitting up in bed. Appears comfortable. SKIN: Warm and dry. HEAD: Normocephalic. EYES: No scleral icterus. No injection or drainage. NECK: Supple, trachea midline. No JVD or lymphadenopathy. CARDIOVASCULAR: Regular rate and rhythm without murmurs, gallops, or rubs. RESPIRATORY: Breath sounds equal bilaterally. No accessory muscle use. GASTROINTESTINAL: Abdomen soft, non-tender, nondistended. MUSCULOSKELETAL: No cyanosis, or edema. BACK: Nontender without obvious deformity. No CVA tenderness. A/P Assessment and Plan //CVA versus TIA: Head CT and MRI are negative. Patient still with symptoms including left facial droop and numbness. Appreciate neurology recommendations. Continue PT/OT/ST. Continue aspirin. =Discharge home on aspirin and statin. Follow-up with neurology as outpatient. Holter monitor ordered. No signs of arrhythmia on telemetry. //Chest pain: Uncertain etiology. No chest pain at the time of my evaluation. Serial cardiac enzymes are negative. = This has resolved. Nightly secondary to anxiety. Troponins negative. Echocardiogram with EF 5055%. = follow-up with primary care, would recommend stress testing as outpatient. //Hyperlipidemia: Start statin. = Discharge home with statin. // Elevated transaminases: Monitor labs. Will use caution with statins. //DVT prophylaxis: CHANI Lyon. Discharge Planning Discharge home in good condition. Continue heart healthy diet. Activity ad marina. Please see discharge medication reconciliation for medication list. Follow-up with primary care, neurology as outpatient. Abdulaziz Salgado MD Dec 24, 2017 19:15
--- NOTE | 2017-12-24 19:16 | HHI.DS ---
Discharge Summary Admission Date Dec 22, 2017 at 21:43 Discharge Date: Dec 24, 2017 Admitting Diagnosis TIA versus CVA (1) Acute focal neurological deficit ICD Code: R29.818 - Other symptoms and signs involving the nervous system Status: Acute Procedures None Brief History - From Admission 51-year-old female with no significant past medical history presents to the emergency department for the evaluation of strokelike symptoms. The patient reports that approximately 8:30 this morning she had numbness and tingling down her left arm and left leg. She reports that these symptoms persisted for approximately an hour. The patient reports she went to lie down and felt better. Around 11 AM the symptoms returned this time for approximately 10 minutes. She also noted that her "face felt funny." She states she had a left sided numbness with a facial droop. She also states that her right eye was more closed than normal. The patient's symptoms resolved after 10 minutes and returned again at 6 PM around dinnertime. At time she had a left-sided facial numbness with drooling and right eyelid drooping. She reports persistent left sided upper and lower extremity numbness/tingling along with right-sided facial droop. No dysarthria or word finding difficulties. She also endorses chest pain and a headache that has been going on for approximately 3 hours. She states the chest pain is substernal and radiates to her bilateral lower breasts. She denies any diaphoresis or shortness of breath. No pain. No nausea/vomiting/diarrhea. CBC/BMP: 12/22/17 1920 12/24/17 0556 Significant Findings Laboratory Tests Test 12/22/17 19:20 12/22/17 20:30 12/23/17 01:55 12/23/17 04:27 Random Glucose 124 MG/DL (74-106) Alkaline Phosphatase 124 U/L (45-117) Alanine Aminotransferase (ALT/SGPT) 64 U/L (10-53) Chloride Level 110 MEQ/L (98-107) Estimat Glomerular Filtration Rate 65 ML/MIN (>89) Troponin I LESS THAN 0.02 NG/ML LESS THAN 0.02 NG/ML LESS THAN 0.02 NG/ML Urine Bacteria OCC /hpf (NONE) Test 12/23/17 09:22 12/24/17 05:56 Triglycerides Level 243 MG/DL (42-150) Cholesterol Level 217 MG/DL (120-200) LDL Cholesterol 141 MG/DL (0-99) HDL Cholesterol 27.3 MG/DL (40.0-60.0) Vitamin B12 Level 1900 PG/ML (193-986) Albumin 3.3 GM/DL (3.4-5.0) Alanine Aminotransferase (ALT/SGPT) 62 U/L (10-53) Chloride Level 110 MEQ/L (98-107) Estimat Glomerular Filtration Rate 71 ML/MIN (>89) Imaging Last Impressions Head Magnetic Resonance Angiography 12/23/17 0000 Signed Impressions: Service Date/Time: Saturday, December 23, 2017 08:39 - CONCLUSION: 1. Unremarkable MRA examination of the [place]. Specifically, no significant stenosis or large vessel occlusion. Jesse Mcqueen MD Brain MRI 12/23/17 0000 Signed Impressions: Service Date/Time: Saturday, December 23, 2017 08:39 - CONCLUSION: 1. Unremarkable MRI examination of the brain. Specifically, no evidence for infarction, hemorrhage or mass. Jesse Mcqueen MD Neck CTA [id number] Signed Impressions: Service Date/Time: Friday, December 22, 2017 21:06 - CONCLUSION: Normal examination for a patient of this age. Vlad Moreira MD Head CTA [id number]/[id number] Signed Impressions: Service Date/Time: Friday, December 22, 2017 21:06 - CONCLUSION: Normal examination for a patient of this age. Vlad Moreira MD Chest X-Ray [id number]/[id number] Signed Impressions: Service Date/Time: Friday, December 22, 2017 19:41 - CONCLUSION: No acute disease. Vlad Moreira MD Head CT 12/22/17 0000 Signed Impressions: Service Date/Time: Friday, December 22, 2017 21:04 - CONCLUSION: Normal examination for a patient of this age. Vlad Moreira MD PE at Discharge General: No acute distress. Heart: Regular rate and rhythm. No murmur. Chest wall: No tenderness to palpation. Lungs: Clear to auscultation bilaterally. No wheezes, rales, or rhonchi. Breathing is nonlabored. Abdomen: Soft, nontender, nondistended. Extremities: No lower extremity edema. Psych: Alert and oriented. Hospital Course MRI on admission negative for any acute findings. Patient persisted with left facial droop, however no other weakness. Patient was seen by neurology, started on aspirin and statin. Patient did report chest pain on admission, however this resolved. Troponins negative and echocardiogram with EF 5055 percent. Patient is to follow with primary care, recommend stress testing electively as outpatient. For problem-based summary from most recent progress note, please see below. //CVA versus TIA: Head CT and MRI are negative. Patient still with symptoms including left facial droop and numbness. Appreciate neurology recommendations. Continue PT/OT/ST. Continue aspirin. =Discharge home on aspirin and statin. Follow-up with neurology as outpatient. Holter monitor ordered. No signs of arrhythmia on telemetry. //Chest pain: Uncertain etiology. No chest pain at the time of my evaluation. Serial cardiac enzymes are negative. = This has resolved. Nightly secondary to anxiety. Troponins negative. Echocardiogram with EF 5055%. = follow-up with primary care, would recommend stress testing as outpatient. //Hyperlipidemia: Start statin. = Discharge home with statin. // Elevated transaminases: Monitor labs. Will use caution with statins. //DVT prophylaxis: CHANI Lyon. Pt Condition on Discharge: Good Discharge Disposition: Discharge Home Discharge Time: > 30 minutes Discharge Instructions DIET: Follow Instructions for: Heart Healthy Diet Activities you can perform: Regular-No Restrictions Follow up Referrals: Neurology - 1 Week with Hilton Perez MD PCP Follow-up - 1 Week with Arthur Callaway DO New Medications: Aspirin (Px Aspirin) 325 Mg Tab 325 MG PO DAILY for Blood Clot Prevention for 30 Days, #30 TAB Atorvastatin (Lipitor) 10 Mg Tab 10 MG PO HS for Cholesterol Management for 30 Days, TAB Abdulaziz Salgado MD Dec 24, 2017 19:16
--- NOTE | 2017-12-27 13:22 | HM ---
Date Performed: 12/24/2017 Time Performed: 17:09:00 HOOKUP DATE: 12/24/17 05:09:00 PM Wed ANALYSIS START TIME: 12/24/2017 5:14:00 PM ANALYSIS END TIME: 12/25/2017 5:09:33 PM PATIENT AGE: 52 PATIENT HEIGHT PATIENT WEIGHT DRUG LIST PATIENT DIAGNOSIS: TIA VS CVA TEST NARRATIVE: The patient's average heart rate was 83 BPM. Heart rates greater than 120 B PM were noted < 1% of the time. No episodes of bradycardia were noted. No pauses exceeding 2.0 s econds were noted. 8 ventricular ectopics, which represented < 1% of the total beat count, were n oted. The highest ventricular ectopic frequency occurred from 02:00 AM to 03:00 AM [place]. During this time 3 VE(s) occurred. Ventricular ectopics were observed as 8 isolated beat(s) only. No couplets or runs were noted. No supraventricular ectopics were noted. No episodes of ST depression (de fined as -1.0 mm or more) were noted in channel 1. No episodes of ST depression (defined as -1.0 mm or more) were noted in channel 2. No episodes of ST depression (defined as -1.0 mm or more) were not ed in channel 3. TEST INTERPRETATION: Agree with above narrative. Signed by : Shaheen Morgan
== END 2017-12-24 19:45 | disposition home or self-care (01) | DRG 93 ==
LOC: NEPC 19:05 → NEDA 21:43 → NEDH 12-23 02:53 → N03B 12-23 10:33
PROVIDERS: ADMIT Internal Medicine; ATTEND Internal Medicine
DX: R29.818 Other symptoms and signs involving the nervous system (principal); E78.5 Hyperlipidemia, unspecified; F41.9 Anxiety disorder, unspecified; H02.401 Unspecified ptosis of right eyelid; R07.2 Precordial pain; R74.0 Nonspecific elevation of levels of transaminase and lactic acid dehydrogenase [LDH]; R11.0 Nausea; R19.7 Diarrhea, unspecified; Z87.891 Personal history of nicotine dependence
CPT/HCPCS: 70450; 70496; 70498; 70544; 70551; 71046; 80053; 80061; 81001; 82550; 82552; 82607; 83036; 83690; 83735; 83880; 84443; 84484; 84703; 85025; 85384; 85610; 85652; 85730; 93005; 93225; 93226; 93306; 99285; J2270; J2405; J7030; Q9967

== ENCOUNTER 2018-03-06 15:23 | Emergency (ER) | payer SELFPAY ==
[~2018-03-06] VITALS: Ht 157.5 cm; Wt 69.5 kg
[~2018-03-06 15:23] MED LIST changes: -ALPR-138 PO; +ASA325 PO; -HYDR-3580 PO; +LIPI10TA PO
[2018-03-06 15:47] VITALS: BP 133/76; PULSE 80; RESP 14; TEMP 98.7; O2SAT 98
[2018-03-07] MEDS ORDERED: ROBA750T PO (10:14)
[2018-03-07] MEDS ORDERED: TYLE325T PO (10:14)
== END 2018-03-06 18:38 | disposition left against medical advice (07) ==
LOC: NED 15:23
DX: M54.2 Cervicalgia (principal)
CPT/HCPCS: 99281

== ENCOUNTER 2018-03-07 08:10 | Emergency (ER) | payer SELFPAY ==
[~2018-03-07] VITALS: Ht 162.6 cm; Wt 69.5 kg
[2018-03-07 08:13] VITALS: BP 129/84; PULSE 91; RESP 16; TEMP 97.9; O2SAT 98
--- NOTE | 2018-03-07 09:07 | PD ---
HPI Chief Complaint: Musculoskeletal Complaint Time Seen by Provider: 08:49 Travel History International Travel<30 days: No Contact w/Intl Traveler<30days: No Traveled to known affect area: No History of Present Illness HPI 52yo F with no significant PMH presents to the ED with c/o right sided neck pain radiating to right shoulder and upper arm for 1 week. Denies any trauma, fever, chest pain, sob, n/v, abdominal pain, focal weakness or numbness. Pt said movement does make the pain worst. Pain is moderate in severity, sharp. PFSH Past Medical History Arthritis: No Anxiety: No Depression: No Cancer: No Cardiovascular Problems: No High Cholesterol: Yes Chemotherapy: No Cerebrovascular Accident: Yes Diabetes: No Diminished Hearing: No Genitourinary: No Immune Disorder: No Musculoskeletal: No Neurologic: Yes Psychiatric: No Reproductive: No Respiratory: No Migraines: No Radiation Therapy: No Sickle Cell Disease: No Thyroid Disease: No Tetanus Vaccination: > 5 Years Influenza Vaccination: No ?: Not Past Surgical History Abdominal Surgery: No AICD: No Appendectomy: Yes Arteriovenous Shunt: No Cardiac Surgery: No Section: Yes Ear Surgery: No Endocrine Surgery: No Eye Surgery: No Genitourinary Surgery: No Gynecologic Surgery: Yes (c section) Insulin Pump: No Joint Replacement: No Oral Surgery: Yes (root cannot) Pacemaker: No Thoracic Surgery: No Social History Alcohol Use: No Tobacco Use: Yes (1/2 PACK EVERY 2 DAYS) Substance Use: No Allergies-Medications (Allergen,Severity, Reaction): Coded Allergies: codeine (Verified Allergy, Intermediate, 03/07/18) VOMITING/RASH penicillin G (Unverified Allergy, Intermediate, Shortness of Breath, ) Reported Meds & Prescriptions Reported Meds & Active Scripts Active Px Aspirin (Aspirin) 325 Mg Tab 325 Mg PO DAILY 30 Days Lipitor (Atorvastatin Calcium) 10 Mg Tab 10 Mg PO HS 30 Days Review of Systems Except as stated in HPI: all other systems reviewed are Neg Physical Exam Narrative GENERAL: 52yo F in mild distress. SKIN: Focused skin assessment warm/dry. HEAD: Atraumatic. Normocephalic. EYES: Pupils equal and round. No scleral icterus. No injection or drainage. ENT: No nasal bleeding or discharge. Mucous membranes pink and moist. NECK: No midline cervical spine ttp. +TTP right paraspinal muscle and upper trapezius. CARDIOVASCULAR: Regular rate and rhythm. No murmur appreciated. RESPIRATORY: No accessory muscle use. Clear to auscultation. Breath sounds equal bilaterally. GASTROINTESTINAL: Abdomen soft, non-tender, nondistended. MUSCULOSKELETAL: +TTP right trapezius and scapula. FROM in right shoulder. Sensation intact. Muscle strength normal in all extremities. Distal pulses intact. NEUROLOGICAL: Awake and alert. No obvious cranial nerve deficits. Motor grossly within normal limits. Normal speech. PSYCHIATRIC: Appropriate mood and affect; insight and judgment normal. Data Data Last Documented VS Vital Signs Date Time Temp Pulse Resp B/P (MAP) Pulse Ox O2 Delivery O2 Flow Rate FiO2 03/07/18 08:13 97.9 91 16 129/84 (99) 98 Orders Orders Diazepam (Valium) (03/07/18 09:15) Ketorolac Inj (Toradol Inj) (03/07/18 09:15) [facility] Medical Decision Making Medical Screen Exam Complete: Yes Emergency Medical Condition: Yes Differential Diagnosis Musculoskeletal pain Narrative Course 52yo F with right sided neck pain and upper back pain. Impression is musculoskeletal pain. Denies any fever, trauma and has good range of motion in right shoulder. No focal weakness or numbness. No midline ttp cervical spine. Pt given valium and toradol with some improvement of pain. Return precautions given. Diagnosis Primary Impression: Musculoskeletal pain Patient Instructions: General Instructions Departure Forms: Tests/Procedures Additional Instructions: Please follow up with your primary care physician in 2-3 days. Return to the ED if symptoms worsen. Med/Other Pt SpecificInfo: Prescription(s) given Scripts Acetaminophen (Tylenol) 325 Mg Tab 650 MG PO Q6H Y for PAIN SCALE 1 TO 4, #20 TAB 0 Refills Prov: Jennifer Tellez 03/07/18 Methocarbamol (Robaxin) 750 Mg Tab 750 MG PO Q6HR Y for PAIN SCALE 1 TO 4, #10 TAB 0 Refills Prov: Jennifer Tellez 03/07/18 Disposition: 01 DISCHARGE HOME Condition: Stable Jennifer Tellez Mar 07, 2018 09:07
[2018-03-07] MEDS ORDERED: KETOROLAC TROMETHAMINE 60 MG/2 ML (IM) VIAL IM ONE (09:15)
[2018-03-07] MEDS ORDERED: DIAZEPAM 5 MG TAB PO ONE (09:15)
[2018-03-07] MEDS ORDERED: TYLE325T PO (10:14)
[2018-03-07] MEDS ORDERED: ROBA750T PO (10:14)
[2018-03-07 10:31] VITALS: BP 118/71
== END 2018-03-07 10:32 | disposition home or self-care (01) ==
LOC: NEPC 08:10
DX: M79.1 Myalgia (principal); M54.2 Cervicalgia; E78.00 Pure hypercholesterolemia, unspecified; F17.200 Nicotine dependence, unspecified, uncomplicated
CPT/HCPCS: 96372; 99283; J1885